=== PATIENT | female | born 1940 | race Hispanic/Latino ===

== ENCOUNTER 2018-02-03 20:13 | Inpatient (IN) | payer MEDICARE ==
[~2018-02-03] VITALS: Ht 170.2 cm; Wt 120.3 kg
[~2018-02-03 20:13] MED LIST: ERTAPENEM 1 GM VIAL IV ONE; LIDOCAINE HCL 1% 2 ML AMP ONE
[2018-02-03 21:30] LABS: HEMOGLOBIN 11.3 g/dL (12.0-16.0); LYMPHOCYTES # (AUTO) 1.5 (1.0-3.2); MEAN CORPUSCULAR HEMOGLOBIN 29.5 pg (28-32); MEAN CORPUSCULAR HGB CONC 34.2 g/dL (31-35); MEAN CORPUSCULAR VOLUME 86.2 fL (81-99); MONOCYTES # (AUTO) 0.4 (0.2-0.8); MONOCYTES % 7.4 % (4.4-11.3); NEUTROPHILS # (AUTO) 3.7 (2.1-6.9); NEUTROPHILS % 66.2 % (38.7-80.0); PLATELET COUNT 159 x10e3/uL (140-360); RED BLOOD COUNT 3.83 x10e6/uL (3.6-5.1); RED CELL DISTRIBUTION WIDTH 15.2 % (11.7-14.4)
[2018-02-03 21:32] LABS: BILIRUBIN,URINE NEGATIVE (NEGATIVE); CLARITY,URINE CLEAR (CLEAR); COLOR,URINE YELLOW (YELLOW); KETONES,URINE NEGATIVE (NEGATIVE); LEUKOCYTE ESTERASE ,URINE 1+ (NEGATIVE); NITRITE,URINE NEGATIVE (NEGATIVE); PROTEIN,URINE DIPSTICK NEGATIVE (NEGATIVE); URINE UROBILINOGEN 0.2 mg/dL (0.2 - 1)
[2018-02-03 21:55] LABS: ALBUMIN/GLOBULIN RATIO 1.3 (0.8-2.0); ANION GAP 13.8 mmol/L (8-16); CREATININE, SERUM 0.94 mg/dL (0.57-1.11); POTASSIUM 3.8 mmol/L (3.5-5.1)
[2018-02-03] MEDS ORDERED: MEROPENEM 500MG 500 MG in SODIUM CHLORIDE 0.9% 50ML 50 ML IV STA (22:58)
[2018-02-03] MEDS ORDERED: ONDANSETRON HCL INJ 2 MG/ML VIAL IV PRN (23:00)
[2018-02-03] MEDS ORDERED: HYDRALAZINE HCL 20 MG/ML VIAL ONE (23:07)
[2018-02-03] MEDS: SODIUM CHLORIDE FLUSH 10 ML SYR INJ PRN (23:11)
[2018-02-03] MEDS: HYDRALAZINE HCL 20 MG/ML VIAL IV PRN (23:13)
[2018-02-04 05:39] LABS: HEMATOCRIT 32.6 % (34.2-44.1); HEMOGLOBIN 10.8 g/dL (12.0-16.0); LYMPHOCYTES # (AUTO) 1.9 (1.0-3.2); LYMPHOCYTES % 37.1 % (18.0-39.1); MEAN CORPUSCULAR HEMOGLOBIN 29.2 pg (28-32); MEAN CORPUSCULAR HGB CONC 33.1 g/dL (31-35); MEAN CORPUSCULAR VOLUME 88.1 fL (81-99); MONOCYTES # (AUTO) 0.5 (0.2-0.8); MONOCYTES % 9.5 % (4.4-11.3); NEUTROPHILS # (AUTO) 2.7 (2.1-6.9); NEUTROPHILS % 53.2 % (38.7-80.0); PLATELET COUNT 148 x10e3/uL (140-360); RED CELL DISTRIBUTION WIDTH 15.5 % (11.7-14.4)
[2018-02-04 06:04] LABS: ALANINE AMINOTRANSFERASE 21 IU/L (0-55); ALBUMIN 3.7 g/dL (3.5-5.0); ALBUMIN/GLOBULIN RATIO 1.3 (0.8-2.0); ALKALINE PHOSPHATASE 81 IU/L (40-150); ANION GAP 11.5 mmol/L (8-16); BLOOD UREA NITROGEN 16 mg/dL (7-26); BUN/CREATININE RATIO 21 (6-25); CALCIUM 9.9 mg/dL (8.4-10.2); CARBON DIOXIDE 27 mmol/L (22-29); CHLORIDE 105 mmol/L (98-107); CREATININE, SERUM 0.77 mg/dL (0.57-1.11); EST GLOMERULAR FILTRATION RATE > 60 ML/MIN (60-); GLUCOSE 93 mg/dL (74-118); POTASSIUM 3.5 mmol/L (3.5-5.1); SODIUM 140 mmol/L (136-145)
[2018-02-04] MEDS: MEROPENEM 500MG 500 MG in SODIUM CHLORIDE 0.9% 50ML 50 ML IV SCH ×2 (06:58→15:45)
[2018-02-04 09:00] VITALS: BP 127/59
[2018-02-04] MEDS: HYDRALAZINE HCL 20 MG/ML VIAL IV PRN (16:10)
[2018-02-04] MEDS: SODIUM CHLORIDE FLUSH 10 ML SYR INJ PRN (16:10)
[2018-02-04] MEDS ORDERED: ACETAMINOPHEN 325 MG TAB PO ONE (18:30)
[2018-02-04 20:20] VITALS: BP 148/69
[2018-02-04 20:30] VITALS: BP 148/69
[2018-02-04] MEDS ORDERED: NIFEDIPINE CR 30 MG TAB PO NR (21:15)
[2018-02-04] MEDS ORDERED: SODIUM CHLORIDE 0.9% 50ML 50 ML ONE (22:37)
[2018-02-04] MEDS ORDERED: IOPAMIDOL 370 MG/ML 200 ML INFUS..BTL INJ ONE (22:38)
--- NOTE | 2018-02-04 22:54 | Diagnostic Imaging Report ---
EXAM: CT ABDOMEN/PELVIS W DATE: 02/04/2018 8:47 PM INDICATION: \S\COMPLICATED UTI / MDR INFECTION COMPARISON: None TECHNIQUE: The abdomen and pelvis were scanned using a multidetector helical scanner. Coronal and sagittal reformations were obtained. Routine protocol performed. IV Contrast: 100 ml Isovue 370 FINDINGS: LOWER THORAX: Minimal scattered atelectasis and air trapping. Nonspecific 2 mm right pulmonary nodules. LIVER/BILIARY: No masses. No ductal dilatation. GALLBLADDER: Unremarkable SPLEEN: Unremarkable PANCREAS: Unremarkable ADRENALS: No nodules KIDNEYS: Symmetric perfusion. No enhancing masses. No hydronephrosis. GI TRACT: No wall thickening or evidence of obstruction. Normal appendix. VESSELS: Moderate atherosclerotic changes. PERITONEUM/RETROPERITONEUM: No free air or fluid LYMPH NODES: No lymphadenopathy REPRODUCTIVE ORGANS/BLADDER: Incidental calcified fibroid. Bladder appears mildly thick walled but is decompressed precluding optimal evaluation. SOFT TISSUES: Rectus muscle diastases. Tiny umbilical fat-containing hernia. BONES: Multilevel degenerative changes which results in canal stenosis for example at L4-5. IMPRESSION: No acute abnormality. Signed by: Dr Paty Vázquez MD on 02/04/2018 10:51 PM
[2018-02-04] MEDS ORDERED: TRAVATAN Z5 ML OP (23:10)
[2018-02-04] MEDS ORDERED: BRIMONIDINE TART5 ML OP (23:10)
[2018-02-04] MEDS ORDERED: SODIUM BICARBO454 GM (23:10)
[2018-02-04] MEDS ORDERED: METOPROLOL SUCC25 MG PO (23:10)
[2018-02-04] MEDS ORDERED: DORZOLAMIDE HCL10 ML OP (23:10)
[2018-02-04 23:40] VITALS: BP 127/59
[2018-02-05] VITALS (7 sets, daily range): BP systolic 94–180; BP diastolic 51–74
[2018-02-05] MEDS ORDERED: MEROPENEM 500MG 500 MG in SODIUM CHLORIDE 0.9% 50ML 50 ML IV SCH ×2
[2018-02-05] MEDS ORDERED: MEROPENEM 500 MG VIAL ONE ×2 (00:32→07:51)
[2018-02-05] MEDS ORDERED: SODIUM CHLORIDE 0.9% 50ML 50 ML ONE (00:33)
[2018-02-05] MEDS ORDERED: SODIUM CHLORIDE 0.9% 250ML 250 ML ONE (00:34)
[2018-02-05] MEDS: NIFEDIPINE CR 30 MG TAB PO SCH (05:33)
[2018-02-05 06:39] LABS: HEMATOCRIT 30.3 % (34.2-44.1); HEMOGLOBIN 10.3 g/dL (12.0-16.0); LYMPHOCYTES # (AUTO) 2.1 (1.0-3.2); LYMPHOCYTES % 46.4 % (18.0-39.1); MEAN CORPUSCULAR HEMOGLOBIN 29.3 pg (28-32); MEAN CORPUSCULAR VOLUME 86.1 fL (81-99); MONOCYTES # (AUTO) 0.4 (0.2-0.8); MONOCYTES % 9.7 % (4.4-11.3); NEUTROPHILS % 43.7 % (38.7-80.0); PLATELET COUNT 137 x10e3/uL (140-360); RED BLOOD COUNT 3.52 x10e6/uL (3.6-5.1); RED CELL DISTRIBUTION WIDTH 15.6 % (11.7-14.4)
[2018-02-05 07:12] LABS: ANION GAP 9.4 mmol/L (8-16); BLOOD UREA NITROGEN 16 mg/dL (7-26); BUN/CREATININE RATIO 21 (6-25); CARBON DIOXIDE 25 mmol/L (22-29); CHLORIDE 105 mmol/L (98-107); CREATININE, SERUM 0.77 mg/dL (0.57-1.11); EST GLOMERULAR FILTRATION RATE > 60 ML/MIN (60-); GLUCOSE 85 mg/dL (74-118); POTASSIUM 3.4 mmol/L (3.5-5.1); SODIUM 136 mmol/L (136-145)
[2018-02-05] MEDS: HYDRALAZINE HCL 20 MG/ML VIAL IV PRN (07:27)
[2018-02-05] MEDS: MEROPENEM 500 MG VIAL IV SCH ×2 (08:06→16:23)
[2018-02-05] MEDS: METOPROLOL SUCCINATE 25 MG TAB XL PO SCH (09:00)
[2018-02-05] MEDS ORDERED: LISINOPRIL 10 MG TAB PO ONE (10:00)
[2018-02-05] MEDS: DORZOLAMIDE HCL (OPTH) 10 ML BOTTLE OP SCH (10:30)
[2018-02-05] MEDS: LISINOPRIL 10 MG TAB PO SCH (10:36)
[2018-02-05] MEDS: BRIMONIDINE TARTRATE (OPTH) 5 ML LIQD OP SCH (11:54)
[2018-02-05] MEDS: TRAVOPROST(OPTH) 2.5 ML BTL OP SCH (11:55)
[2018-02-05] MEDS ORDERED: HYDROCODONE/APAP 5MG-325MG TAB PO ONE (18:15)
[2018-02-06] VITALS: BP 110/54
[2018-02-06] MEDS: MEROPENEM 500 MG VIAL IV SCH ×3 (00:23→16:00)
[2018-02-06 04:00] VITALS: BP 121/57
[2018-02-06] MEDS: NIFEDIPINE CR 30 MG TAB PO SCH (05:30)
[2018-02-06 08:00] VITALS: BP 150/67
[2018-02-06] MEDS ORDERED: LISINOPRIL 10 MG TAB PO SCH (09:00)
[2018-02-06] MEDS: DORZOLAMIDE HCL (OPTH) 10 ML BOTTLE OP SCH (09:00)
[2018-02-06] MEDS: LISINOPRIL 10 MG TAB PO SCH ×2 (09:38→17:45)
[2018-02-06] MEDS: METOPROLOL SUCCINATE 25 MG TAB XL PO SCH (09:39)
[2018-02-06] MEDS ORDERED: MAGNESIUM HYDROXIDE 30 ML UDC PO PRN (10:30)
[2018-02-06] MEDS: TRAVOPROST(OPTH) 2.5 ML BTL OP SCH (10:33)
[2018-02-06] MEDS: BRIMONIDINE TARTRATE (OPTH) 5 ML LIQD OP SCH (10:33)
[2018-02-06] MEDS ORDERED: MAGNESIUM HYDROXIDE 30 ML UDC PO ONE (11:00)
[2018-02-06] MEDS ORDERED: BISACODYL 5 MG TAB EC PO ONE (11:00)
[2018-02-06] MEDS ORDERED: HYDROCODONE/APAP 5MG-325MG TAB PO PRN (11:15)
[2018-02-06] MEDS: SENNOSIDES 8.6 MG TAB PO SCH ×2 (11:35→17:45)
[2018-02-06] MEDS: CELECOXIB 200 MG CAP PO SCH ×2 (11:41→17:00)
[2018-02-06 12:00] VITALS: BP 154/66
[2018-02-06 16:00] VITALS: BP 162/75
[2018-02-06] MEDS: ENOXAPARIN SOD INJ 40 MG/0.4 ML SYR SC SCH (17:45)
[2018-02-06 20:00] VITALS: BP 124/56
[2018-02-07 00:24] VITALS: BP 120/68
[2018-02-07 04:00] VITALS: BP 141/66
[2018-02-07 08:02] LABS: HEMATOCRIT 30.8 % (34.2-44.1); HEMOGLOBIN 10.3 g/dL (12.0-16.0); LYMPHOCYTES # (AUTO) 1.3 (1.0-3.2); LYMPHOCYTES % 42.9 % (18.0-39.1); MEAN CORPUSCULAR HEMOGLOBIN 28.9 pg (28-32); MEAN CORPUSCULAR HGB CONC 33.4 g/dL (31-35); MEAN CORPUSCULAR VOLUME 86.3 fL (81-99); MONOCYTES # (AUTO) 0.4 (0.2-0.8); MONOCYTES % 14.5 % (4.4-11.3); NEUTROPHILS # (AUTO) 1.3 (2.1-6.9); NEUTROPHILS % 42.3 % (38.7-80.0); PLATELET COUNT 133 x10e3/uL (140-360); RED BLOOD COUNT 3.57 x10e6/uL (3.6-5.1); RED CELL DISTRIBUTION WIDTH 15.1 % (11.7-14.4)
[2018-02-07] MEDS: MEROPENEM 500 MG VIAL IV SCH ×4 (08:22→23:55)
[2018-02-07] MEDS: CELECOXIB 200 MG CAP PO SCH ×2 (08:22→16:56)
[2018-02-07] MEDS: METOPROLOL SUCCINATE 25 MG TAB XL PO SCH (08:23)
[2018-02-07] MEDS: NIFEDIPINE CR 30 MG TAB PO SCH (08:23)
[2018-02-07] MEDS: SENNOSIDES 8.6 MG TAB PO SCH ×2 (08:23→16:56)
[2018-02-07] MEDS: LISINOPRIL 10 MG TAB PO SCH ×2 (08:23→16:56)
[2018-02-07 08:27] LABS: ANION GAP 8.7 mmol/L (8-16); BLOOD UREA NITROGEN 17 mg/dL (7-26); BUN/CREATININE RATIO 24 (6-25); CALCIUM 9.2 mg/dL (8.4-10.2); CARBON DIOXIDE 27 mmol/L (22-29); CHLORIDE 101 mmol/L (98-107); CREATININE, SERUM 0.71 mg/dL (0.57-1.11); EST GLOMERULAR FILTRATION RATE > 60 ML/MIN (60-); GLUCOSE 92 mg/dL (74-118); POTASSIUM 3.7 mmol/L (3.5-5.1); SODIUM 133 mmol/L (136-145)
[2018-02-07 08:54] VITALS: BP 171/71
[2018-02-07] MEDS: DORZOLAMIDE HCL (OPTH) 10 ML BOTTLE OP SCH (09:00)
[2018-02-07] MEDS: TRAVOPROST(OPTH) 2.5 ML BTL OP SCH (09:00)
[2018-02-07] MEDS: BRIMONIDINE TARTRATE (OPTH) 5 ML LIQD OP SCH (09:23)
[2018-02-07 11:51] VITALS: BP 148/65
[2018-02-07] MEDS: ENOXAPARIN SOD INJ 40 MG/0.4 ML SYR SC SCH (16:56)
[2018-02-07 17:19] VITALS: BP 150/63
[2018-02-07 19:20] VITALS: BP 119/58
[2018-02-08 00:55] VITALS: BP 120/58
[2018-02-08 05:00] VITALS: BP 128/58
[2018-02-08] MEDS: NIFEDIPINE CR 30 MG TAB PO SCH (06:00)
[2018-02-08 07:45] VITALS: BP 171/76
[2018-02-08 07:56] VITALS: BP 171/76
[2018-02-08] MEDS: SENNOSIDES 8.6 MG TAB PO SCH (08:00)
[2018-02-08] MEDS: MEROPENEM 500 MG VIAL IV SCH (08:00)
[2018-02-08] MEDS: METOPROLOL SUCCINATE 25 MG TAB XL PO SCH (08:00)
[2018-02-08] MEDS: LISINOPRIL 10 MG TAB PO SCH (08:00)
[2018-02-08] MEDS: CELECOXIB 200 MG CAP PO SCH (08:00)
[2018-02-08] MEDS: DORZOLAMIDE HCL (OPTH) 10 ML BOTTLE OP SCH (09:00)
[2018-02-08] MEDS ORDERED: ERTAPENEM 1GM/NS 100ML 100 ML IV ONE (11:15)
[2018-02-08] MEDS ORDERED: INVANZ 1 GM IM ONE (11:30)
--- NOTE | 2018-02-08 21:31 | Discharge Summary ---
FINAL DIAGNOSES: 1. Klebsiella pneumonia, extended-spectrum beta lactamase multidrug resistant urinary tract infection, colony unit is 100,000. 2. Morbid obesity. 3. Multiple chronic baseline problems. SUMMARY: The patient is a 78-year-old female with urinary tract infection. The urine culture outpatient with Dr. Nathaniel Mckeon was sensitive to Amikacin, ertapenem, imipenem and meropenem only. Patient has received meropenem here. She is stable. She will get 1 dose of Invanz 1 gram IM before discharge today. The patient is otherwise stable. She will follow up as an outpatient with Dr. Nathaniel Mckeon. The patient is stable, discharged home today, resume home medication. The patient has no fever. No urinary symptoms. She is comfortable. Job#: [id number]
== END 2018-02-08 11:47 | disposition home or self-care (01) | DRG 690 ==
LOC: ER 20:13 → ERHOLD 22:57 → MED/SURG3 02-04 19:21
PROVIDERS: ADMIT Internal Medicine; ATTEND Internal Medicine
DX: N39.0 Urinary tract infection, site not specified (principal); B96.1 Klebsiella pneumoniae [K. pneumoniae] as the cause of diseases classified elsewhere; Z68.41 Body mass index [BMI] 40.0-44.9, adult; Z16.12 Extended spectrum beta lactamase (ESBL) resistance; E66.01 Morbid (severe) obesity due to excess calories; I10 Essential (primary) hypertension
CPT/HCPCS: 36415; 74177; 80048; 80053; 81001; 82607; 82948; 83036; 84443; 85025; 87040; 87071; 87086; 87205; 96365; 96374; 99284; J0360; J1650; J2185; J7050; Q9967